=== PATIENT | male | born 1995 | race Two or more races ===

== ENCOUNTER → 2022-06-11 | Emergency (ER) | payer OTHER ==
[~2022-06-11] VITALS: Ht 180.3 cm; Wt 65.8 kg
[~2022-06-11] MED LIST: IV NS 0.9% 1,000 ML BAG IV ONE; LORAZEPAM 1 MG TABLET ONE; LORAZEPAM 1 MG TABLET PO ONE
[2022-06-11 13:57] VITALS: BP 158/76
--- NOTE | 2022-06-11 15:00 | NUR ---
DR COLEY AT BEDSIDE
--- NOTE | 2022-06-11 15:08 | NUR ---
monroe hayes (mother) [phone]
[2022-06-11 15:30] LABS: BASOPHILS % (AUTO) 0.1 % (0.0-2.0); EOSINOPHILS % (AUTO) 0.3 % (0.0-6.0); HEMATOCRIT 39 % (39-51); HEMOGLOBIN 12.9 g/dL (13.5-17.5); LYMPHOCYTES # (AUTO) 0.8 K/uL (0.8-4.8); LYMPHOCYTES % (AUTO) 9.6 % (20.0-44.0); MEAN CORPUSCULAR HGB CONC 33 g/dl (31.0-36.0); MEAN CORPUSCULAR VOLUME 88 fL (80-96); MONOCYTES # (AUTO) 0.7 K/uL (0.1-1.30); MONOCYTES % (AUTO) 7.8 % (2.0-12.0); NEUTROPHILS # (AUTO) 6.9 K/uL (1.8-8.9); NEUTROPHILS % (AUTO) 82.2 % (43.0-81.0); PLATELET COUNT (AUTO) 159 K/uL (150-450); RED BLOOD CELL COUNT(AUTO) 4.49 MIL/uL (4.5-6.0); WHITE BLOOD COUNT (AUTO) 8.4 K/uL (4.3-11.0)
[2022-06-11 16:16] LABS: CALCIUM, SERUM 8.1 mg/dL (8.5-10.1); CARBON DIOXIDE 26 mmol/L (21-32); CHLORIDE 104 mmol/L (98-107); CREATININE 0.9 mg/dL (0.6-1.3); GLUCOSE 92 mg/dL (74-106); SODIUM SERUM 138 mmol/L (136-145); UREA NITROGEN, BLOOD 13 mg/dL (7-18)
[2022-06-11 16:21] LABS: ALANINE AMINOTRANSFERASE 57 U/L (12-78); ALBUMIN 3.7 g/dL (3.4-5.0); ALCOHOL, BLOOD < 3 mg/dL (0-0); ALKALINE PHOSPHATASE 81 U/L (46-116); ASPARTATE AMINOTRANSFERASE 105 U/L (15-37); BILIRUBIN,DIRECT 0.1 mg/dL (0.0-0.2); BILIRUBIN,TOTAL 0.4 mg/dL (0.2-1.0); TOTAL PROTEIN, SERUM 7.1 g/dL (6.4-8.2)
[2022-06-11 16:27] LABS: ACETAMINOPHEN < 10 ug/ml (10-30)
--- NOTE | 2022-06-11 16:35 | NUR ---
urine sample obtained
[2022-06-11 17:49] LABS: BILIRUBIN,URINE NEGATIVE (NEGATIVE); COLOR,URINE YELLOW (YELLOW); LEUKOCYTE ESTERASE ,URINE NEGATIVE (NEGATIVE); NITRITE, URINE NEGATIVE (NEGATIVE); PROTEIN,URINE NEGATIVE (NEGATIVE); UGLUCOSE NEGATIVE (NEGATIVE); UROBILINOGEN,URINE 0.2 EU/dL (0.2)
== END | disposition home or self-care (01) ==
LOC: ER 13:56
DX: T40.711A Poisoning by cannabis, accidental (unintentional), initial encounter (principal); F41.0 Panic disorder [episodic paroxysmal anxiety]; R94.31 Abnormal electrocardiogram [ECG] [EKG]; I10 Essential (primary) hypertension; Y92.89 Other specified places as the place of occurrence of the external cause
CPT/HCPCS: 99285; 96360; 93005; 71045; 85025; 80048; 80076; 81003; 36415; 84484 ×2; 80143; 80320; 80307; J7030; G0480

== ENCOUNTER 2023-09-08 01:33 | Emergency (ER) | payer OTHER ==
[~2023-09-08] VITALS: Ht 175.3 cm; Wt 64.9 kg
[2023-09-08] MEDS ORDERED: MORPHINE SULFATE INJ 4 MG/ML DISP.SYRIN ONE (02:12)
[2023-09-08] MEDS ORDERED: ONDANSETRON 4 MG TAB.RAPDIS ONE (02:12)
[2023-09-08] MEDS: MORPHINE SULFATE INJ 2 MG/ML DISP.SYRIN IM ONE (02:27)
[2023-09-08] MEDS: ONDANSETRON 4 MG TAB.RAPDIS PO ONE (02:28)
[2023-09-08 02:42] LABS: BASOPHILS % (AUTO) 0.5 % (0.0-2.0); EOSINOPHILS # (AUTO) 0.1 K/uL (0.0-0.7); EOSINOPHILS % (AUTO) 1.1 % (0.0-6.0); HEMATOCRIT 39 % (39-51); HEMOGLOBIN 13.1 g/dL (13.5-17.5); LYMPHOCYTES # (AUTO) 2.5 K/uL (0.8-4.8); LYMPHOCYTES % (AUTO) 39.3 % (20.0-44.0); MEAN CORPUSCULAR HEMOGLOBIN 29 PG (26.0-33.0); MEAN CORPUSCULAR HGB CONC 34 g/dl (31.0-36.0); MEAN CORPUSCULAR VOLUME 88 fL (80-96); MONOCYTES # (AUTO) 0.6 K/uL (0.1-1.30); MONOCYTES % (AUTO) 9.2 % (2.0-12.0); NEUTROPHILS # (AUTO) 3.2 K/uL (1.8-8.9); NEUTROPHILS % (AUTO) 49.9 % (43.0-81.0); PLATELET COUNT (AUTO) 180 K/uL (150-450); RED BLOOD CELL COUNT(AUTO) 4.47 MIL/uL (4.5-6.0); RED CELL DISTRIBUTION WIDTH 14.1 % (11.5-15.0); WHITE BLOOD COUNT (AUTO) 6.4 K/uL (4.3-11.0)
[2023-09-08 02:45] LABS: CALCIUM, SERUM 9.1 mg/dL (8.5-10.1); CREATININE 0.9 mg/dL (0.6-1.3); POTASSIUM 3.4 mmol/L (3.5-5.1)
[2023-09-08 02:50] LABS: ALBUMIN 3.9 g/dL (3.4-5.0); BILIRUBIN,TOTAL 0.5 mg/dL (0.2-1.0); TOTAL PROTEIN, SERUM 7.3 g/dL (6.4-8.2)
[2023-09-08] MEDS ORDERED: HYDR30CR79 TP (03:18)
[2023-09-08] MEDS ORDERED: POTASSIUM CHLORIDE 20 MEQ TAB.PRT.SR PO ONE (03:35)
[2023-09-08] MEDS: POTASSIUM CHLORIDE 20 MEQ TAB.PRT.SR PO ONE (03:38)
[2023-09-08 03:42] VITALS: BP 143/79; TEMP 98.5; O2SAT 98
== END 2023-09-08 03:42 | disposition home or self-care (01) ==
LOC: ER 01:42
DX: K64.5 Perianal venous thrombosis (principal); I10 Essential (primary) hypertension; Z79.899 Other long term (current) drug therapy; Z60.2 Problems related to living alone
CPT/HCPCS: 99283; 96372; 85025; 36415; 80053; J2270; Q0162